=== PATIENT | female | born 1985 | race Caucasian/White ===

== ENCOUNTER 2025-05-21 06:01 | Emergency (ER) | payer MEDICAID ==
[2025-05-21 06:06] VITALS: RESP 18
--- NOTE | 2025-05-21 06:21 | ED ---
Animal Bite HPI - General Chief Complaint: Animal Bite Stated Complaint: Dog bite Time Seen by Provider: 05/21/25 06:19 Source: patient, RN notes reviewed Mode of arrival: ambulatory Limitations: no limitations - History of Present Illness Initial Comments: 40-year-old female presenting to the ER for evaluation of dog bite. Patient reports last night she was petting her foster dog when the animal accidentally bit her left hand. Dog is an Omani Davis. Patient reports she immediately cleaned the wound with warm soapy water and placed triple antibiotic ointment over top of it. She states throughout the night she has noticed swelling and warmth to puncture wound. She denies any purulent drainage, fevers or chills. Denies any limited range of motion or paresthesias to fingers. Patient is up-to-date on tetanus. Animal is up-to-date on vaccinations. No other injuries - Related Data Previous Rx's Medication Instructions Recorded Amoxic-Pot Clav 875-125Mg 1 tab PO Q12HR 10 Days #20 tab 05/21/25 [Augmentin 875-125] Allergies Allergy/AdvReac Type Severity Reaction Status Date / Time No Known Allergies Allergy Verified 05/21/25 06:06 Review of Systems ROS Statement: Those systems with pertinent positive or pertinent negative responses have been documented in the HPI. ROS Other: All systems not noted in ROS Statement are negative. Past Medical History Past Medical History: Hypertension History of Any Multi-Drug Resistant Organisms: None Reported Past Surgical History: Section Past Psychological History: Depression Smoking Status: Never smoker Past Alcohol Use History: Rare Past Drug Use History: None Reported General Exam Limitations: no limitations General appearance: alert, in no apparent distress Respiratory exam: Present: normal lung sounds bilaterally. Absent: respiratory distress, wheezes, rales, rhonchi, stridor Cardiovascular Exam: Present: regular rate, normal rhythm, normal heart sounds. Absent: systolic murmur, diastolic murmur, rubs, gallop, clicks Extremities exam: Present: full ROM, normal capillary refill (2+ left radial pulse), other (1 cm nongaping puncture wound to left hand overlying the fourth MCP joint. There is mild surrounding edema and minimal warmth. There is no erythema or purulent drainage. Brisk cap refill. No pain to palpation over tendon sheath pain or with passive flexion of 4th digit.) Neurological exam: Present: alert, oriented X3, CN II-XII intact Skin exam: Present: warm, dry, intact, normal color. Absent: rash Course Vital Signs 05/21/25 05/21/25 06:03 07:39 Temperature 97.9 F 98 F Pulse Rate 106 H 98 Respiratory 18 18 Rate Blood Pressure 171/106 161/94 O2 Sat by Pulse 100 99 Oximetry Medical Decision Making - Medical Decision Making Was pt. sent in by a medical professional or institution (, PA, NEWS LIBRARY DIRECTOR, urgent care, hospital, or residential...) When possible be specific @ -No Did you speak to anyone other than the patient for history (EMS, parent, family, police, friend...)? What history was obtained from this source @ -No Did you review nursing and triage notes (agree or disagree)? Why? @ -I reviewed and agree with nursing and triage notes Were old charts reviewed (outside hosp., previous admission, EMS record, old EKG, old radiological studies, urgent care reports/EKG's, residential records)? Report findings @ -No old charts were reviewed Differential Diagnosis (chest pain, altered mental status, abdominal pain women, abdominal pain men, vaginal bleeding, weakness, fever, dyspnea, syncope, headache, dizziness, GI bleed, back pain, seizure, CVA, palpatations, mental health, musculoskeletal)? @ -Dog bite, cellulitis, sepsis, foreign body... This list is not meant to be all-inclusive EKG interpreted by me (3pts min.). @ -None X-rays interpreted by me (1pt min.). @ -Left hand x-ray interpreted me negative for radiopaque foreign body or acute osseous fractures CT interpreted by me (1pt min.). @ -None done U/S interpreted by me (1pt. min.). @ -None done What testing was considered but not performed or refused? (CT, X-rays, U/S, labs)? Why? @ -None What meds were considered but not given or refused? Why? @ -Rabies vaccinations considered and offered to patient. She refused as animal is UTD on vaccinations and can be monitored for any concerning symptoms. Did you discuss the management of the patient with other professionals (professionals i.e. , PA, NEWS LIBRARY DIRECTOR, lab, RT, psych nurse, high school social science teacher, glass loading equipment tender, teacher, security patrol officer, sample case porter)? Give summary @ -No Was smoking cessation discussed for >3mins.? @ -No Was critical care preformed (if so, how long)? @ -No Were there social determinants of health that impacted care today? How? (Homelessness, low income, unemployed, alcoholism, drug addiction, transportation, low edu. Level, literacy, decrease access to med. care, shelter, rehab)? @ -No Was there de-escalation of care discussed even if they declined (Discuss DNR or withdrawal of care, Hospice)? DNR status @ -No What co-morbidities impacted this encounter? (DM, HTN, Smoking, COPD, CAD, Cancer, CVA, ARF, Chemo, Hep., AIDS, mental health diagnosis, sleep apnea, morbid obesity)? @ -None Was patient admitted / discharged? Hospital course, mention meds given and route, prescriptions, significant lab abnormalities, going to OR and other pertinent info. @ -Discharge. 40-year-old female presented to ER for evaluation of dog bite. Patient initially tachycardic at 106 bpm and hypertensive 171/106 this did improve. Examination of left hand remarkable for a 1 cm nongaping puncture wound noted to palmar aspect overlying 4th MCP joint. Patient is neuro vastly intact with full active range of motion. There is mild edema and minimal warmth noted without erythema or purulent drainage. No pain with passive range of motion. X-rays obtained negative for acute fractures or radiopaque foreign body. Patient's tetanus is up-to-date. Animal is up-to-date on vaccinations. Patient refused rabies vaccinations. Wound does not require closure as it is not gaping and for infection prophylaxis. Patient will be prescribed Augmentin, first dose in the emergency department. On reevaluation, patient resting comfortably on stretcher no signs of acute distress patient educated on today's findings. Conservative treatment options discussed. Wound care discussed. Extremely strict return parameters discussed with patient who verbally expressed understanding of these. Patient discharged stable condition with follow-up to PCP in 1 to 2 days. Patient verbally expressed understanding and agreement with care plan. Case discussed with ED attending, Dr. Wood Undiagnosed new problem with uncertain prognosis? @ -No Drug Therapy requiring intensive monitoring for toxicity (Heparin, Nitro, Insulin, Cardizem)? @ -No Were any procedures done? @ -No Diagnosis/symptom? @ -Dog bite Acute, or Chronic, or Acute on Chronic? @ -Acute Uncomplicated (without systemic symptoms) or Complicated (systemic symptoms)? @ -Uncomplicated Side effects of treatment? @ -No Exacerbation, Progression, or Severe Exacerbation? @ -No Poses a threat to life or bodily function? How? (Chest pain, [place], [place], pneumonia, PE, COPD, DKA, ARF, appy, cholecystitis, CVA, Diverticulitis, Homicidal, Suicidal, threat to staff... and all critical care pts) @ -Low at this time. - Radiology Data Radiology results: report reviewed, image reviewed Disposition Clinical Impression: Dog bite Disposition: HOME SELF-CARE Condition: Stable Instructions (If sedation given, give patient instructions): Animal Bite (ED) Additional Instructions: Take Augmentin as prescribed. Have a low threshold of returning to the ER for increase in pain swelling or redness to wound. Also return to the ER for any redness moving up your arm, fevers or chills. Follow-up with PCP in the next 2- 3 days for reevaluation. Prescriptions: Amoxic-Pot Clav 875-125Mg [Augmentin 875-125] 1 tab PO Q12HR 10 Days #20 tab Is patient prescribed a controlled substance at d/c from ED?: No Referrals: Daniel Daly MD [Primary Care Provider] - 1-2 days Time of Disposition: 07:32
[2025-05-21] MEDS: AMOXIC-POT CLAV 875-125MG 1 EACH TAB PO STA (06:30)
--- NOTE | 2025-05-21 07:17 | XR ---
EXAMINATION TYPE: XR hand complete LT DATE OF EXAM: 05/21/2025 6:27 AM COMPARISON: None CLINICAL INDICATION: Female, 40 years old with history of dog bite; PHH, pain TECHNIQUE: 3 views FINDINGS: No acute fracture, subluxation, dislocation is seen. Joint spaces are maintained. No paresthesias or osteolysis. No retained radiopaque foreign body seen. IMPRESSION: No acute osseous abnormalities seen. No retained radiopaque foreign body identified. [facility], Workstation: [id number], 05/21/2025 7:15 AM
[2025-05-21 07:41] VITALS: BP 161/94; PULSE 98; TEMP 98
== END 2025-05-21 07:39 | disposition home or self-care (01) ==
LOC: EC 06:01 → SUPCPDRO 06:01 → EC 07:39
DX: S61.255A Open bite of left ring finger without damage to nail, initial encounter (principal); W54.0XXA Bitten by dog, initial encounter
CPT/HCPCS: 99283